=== PATIENT | female | born 1995 | race Hispanic/Latino ===

== ENCOUNTER 2019-12-26 20:19 | Observation (INO) | payer OTHER, SELFPAY ==
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
[2019-12-26 19:14] VITALS: BP 122/75; PULSE 76; RESP 19; TEMP 36.9; O2SAT 98
[2019-12-26 20:26] VITALS: BP 112/65; PULSE 74
[2019-12-26 20:31] VITALS: BP 106/54; PULSE 67
[2019-12-26 20:46] VITALS: BP 106/51; PULSE 71
[2019-12-26 21:01] VITALS: BP 107/48; PULSE 70
[2019-12-26 21:16] VITALS: BP 94/51; PULSE 83
[2019-12-26 21:42] VITALS: BMI 26.4
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
== END 2019-12-26 22:04 | disposition home or self-care (01) ==
PROVIDERS: Admitting Provider Obstetrics & Gynecology; PCP Family Medicine; Visit Provider Obstetrics & Gynecology
DX: Z04.1 Encounter for examination and observation following transport accident (principal); O26.891 Other specified pregnancy related conditions, first trimester; Z3A.11 11 weeks gestation of pregnancy
CPT/HCPCS: 76801; G0378; G0379

== ENCOUNTER 2020-01-26 08:54 | Outpatient (NON) | payer OTHER, SELFPAY ==
[2020-01-26 21:43] LABS: SARS-CoV-2 RNA PCR Negative
== END 2020-01-26 08:55 ==
LOC: ANHCOVIDDT 08:55
PROVIDERS: PCP Family Medicine; Visit Provider Obstetrics & Gynecology
DX: O99.891 Other specified diseases and conditions complicating pregnancy (principal); R53.83 Other fatigue; Z20.828 Contact with and (suspected) exposure to other viral communicable diseases; Z3A.16 16 weeks gestation of pregnancy
CPT/HCPCS: 87635; C9803; U0003

== ENCOUNTER 2020-04-13 19:04 | Observation (INO) | payer OTHER, SELFPAY ==
--- NOTE | ~2020-04-13 | US_ITS ---
EXAMINATION: US OB limited DATE: 04/14/2020 07:30 INDICATION: Low-lying placenta. Patient having contractions at 28 weeks estimated gestational age. TECHNIQUE: Real-time ultrasound of the pelvis was performed. The interpreting radiologist was not pre sent for the study. COMPARISON: None. FINDINGS: There is a single living fetus in transverse lie with head to maternal right in vertex slightly more cephalad than the feet. The placenta is posterior and low-lying with caudal margin 1.4 cm from the internal cervical os. There is a small hypoechoic placental monk. heart rate is 133 beats per minute (bpm). IMPRESSION: 1. Single living fetus in transverse lie with heart rate of 133 bpm. Reviewed, dictated and finalized at location A. RY DRUM DYER
[2020-04-13 19:59] VITALS: BP 117/59; PULSE 90
[2020-04-13 20:16] LABS: Add Urine Microscopic? YES; Appearance Urine Cloudy (Clear); Bacteria Urine Trace /hpf; Bilirubin Urine Negative (Negative); Blood Urine 1+ (Negative); Color Urine Yellow (Yellow); Glucose Urine UA Negative (Negative); Ketones Urine 1+ mg/dL (Negative); Leukocyte Esterase Ur Trace LEU/UL (NEGATIVE); Mucus Urine Rare /lpf; Nitrate Urine Negative (Negative); Protein Urine Negative (Negative); RBC Urine 0-2 /hpf (0-2); Specific Grav Ur 1.023 (1.001-1.035); Squamous Epithelial Cell Urine Many /hpf (Few); Urobilinogen Urine Negative mg/dL (<2.0)
--- NOTE | 2020-04-13 20:38 | PC.NURSE ---
Notified Antony Dillon of pt admission lab work and assessment. Orders received.
[2020-04-13] MEDS: TERBUTALINE SULFATE 1 MG/ML VIAL 0.25 MG SUB-Q ×2 (21:01→22:35)
[2020-04-13] MEDS: ACETAMINOPHEN 500 MG TABLET 1000 MG PO (21:01)
[2020-04-13] MEDS: NITROFURANTOIN MONOHYD MACROCR 100 MG CAP PO (21:01)
[2020-04-13] MEDS: LACTATED RINGERS 1,000 ML 999 ML IV CONT (22:35)
--- NOTE | 2020-04-13 23:24 | OBADM ---
This patient, Marianna Armstrong, admitted to the OB room OB Post 117 for observation. Patient/family oriented to hospital policies and general routines including ID bracelet, bed and alarms, visiting hours, pain management, procedures, bathroom and other care routines, personal items, smoking policy, room service/diet, and visiting hours. Patient/Family are encouraged to report perceived risks to care and to ask questions if they do not understand what they are told or what they should do.
[2020-04-14 00:03] VITALS: TEMP 36.8
--- NOTE | 2020-04-14 00:15 | PC.NURSE ---
Addendum entered by Ryan Tello RN 04/14/20 02:17: Notified Antony Dillon of pt continued complaint of intermittent pain. No contractions. Will observe overnight and do ultrasound in morning. Original Note: NOTIFIED
[2020-04-14 03:54] VITALS: BP 94/58; PULSE 89
[2020-04-14 07:07] VITALS: BP 95/41; PULSE 88
[2020-04-14] MEDS: ACETAMINOPHEN 500 MG TABLET 1000 MG PO (08:04)
[2020-04-14] MEDS: CYCLOBENZAPRINE HCL 5 MG TABLET PO (09:03)
[2020-04-14] MEDS: NITROFURANTOIN MONOHYD MACROCR 100 MG CAP PO (09:03)
--- NOTE | 2020-05-07 07:57 | PM.OBTRLD ---
OB - Triage/Final Diagnosis Visit Information Comments/Additional reasons for admission: I have assessed the risk for this patient, Marianna Armstrong, and determined that she would benefit from observation care. Evaluation Laboratory results: Laboratory Tests 04/13/20 19:59 Urine Color Yellow Urine Appearance Cloudy H Urine pH 6.0 Ur Specific [place] 1.023 Urine Protein Negative Urine Glucose (UA) Negative Urine Ketones 1+ H Ur Blood (Man) 1+ H Urine Nitrate Negative Urine Bilirubin Negative Urine Urobilinogen Negative Ur Leukocyte Esterase Trace H Urine RBC 0-2 Urine WBC 4-6 H Ur Squamous Epith Cells Many H Urine Bacteria Trace Hyaline Casts 1-2 Urine Mucus Rare Final Diagnosis (1) False labor: Code(s): O47.9 - False labor, unspecified Status: Acute
== END 2020-04-14 11:37 | disposition home or self-care (01) ==
PROVIDERS: Advanced Practice Midwife; Admitting Provider Obstetrics & Gynecology; PCP Family Medicine; Visit Provider Obstetrics & Gynecology
DX: O47.9 False labor, unspecified (principal); Z3A.00 Weeks of gestation of pregnancy not specified
CPT/HCPCS: 76815; 81001; 87086; 96372; A9270; G0378; G0379; J3105; J7120

== ENCOUNTER 2020-04-21 10:31 | Observation (INO) | payer OTHER, SELFPAY ==
[2020-04-21] VITALS (7 sets, daily range): BP systolic 80–106; BP diastolic 33–53; PULSE 81–92; TEMP 36.8; BMI 30.8
--- NOTE | 2020-04-21 11:21 | OBADM ---
This patient, Marianna Armstrong, admitted to the OB room OB Post 113 for observation. Patient/family oriented to hospital policies and general routines including ID bracelet, bed and alarms, visiting hours, pain management, procedures, bathroom and other care routines, personal items, smoking policy, room service/diet, and visiting hours. Patient/Family are encouraged to report perceived risks to care and to ask questions if they do not understand what they are told or what they should do.
--- NOTE | 2020-04-21 12:29 | PC.NURSE ---
1130--Pt continues to c/o back pain that comes and goes. Monitor adjusted several times with no contractions noted per toco or palpation.
--- NOTE | 2020-04-21 12:34 | PC.NURSE ---
1156--Instructed pt on marking contractions that she feels in her back.
--- NOTE | 2020-04-21 12:35 | PC.NURSE ---
1230--No contractions noted with pt marking what she feels. Describes back pain as very low aching.
--- NOTE | 2020-05-13 09:33 | PM.OBTRLD ---
OB - Triage/Final Diagnosis Visit Information Comments/Additional reasons for admission: I have assessed the risk for this patient, Marianna Armstrong, and determined that she would benefit from observation care. Final Diagnosis (1) Nausea: Code(s): R11.0 - Nausea Status: Acute
== END 2020-04-21 12:50 | disposition home or self-care (01) ==
PROVIDERS: Admitting Provider Obstetrics & Gynecology; PCP Family Medicine; Visit Provider Obstetrics & Gynecology
DX: O26.899 Other specified pregnancy related conditions, unspecified trimester (principal); R11.0 Nausea; Z3A.00 Weeks of gestation of pregnancy not specified
CPT/HCPCS: G0378; G0379

== ENCOUNTER 2020-05-02 12:07 | Observation (INO) | payer OTHER, SELFPAY ==
[2020-05-02] VITALS (7 sets, daily range): BP systolic 105–119; BP diastolic 45–59; PULSE 67–81
[2020-05-02 13:53] LABS: Fetal Fibronectin Negative
--- NOTE | 2020-05-04 07:36 | P.PNOB_ITS ---
OB - Triage/Final Diagnosis Visit Information Date of evaluation: 05/02/20 Reason for evaluation: threatened labor Comments/Additional reasons for admission: I have assessed the risk for this patient, Marianna Talavera Armstrong, and determined that she would benefit from obse rvation care. Evaluation Laboratory results: Laboratory Tests 05/02/20 12:47 Fibronectin Negative
--- NOTE | 2020-05-04 07:36 | PM.OBTRLD ---
OB - Triage/Final Diagnosis Visit Information Date of evaluation: 05/02/20 Reason for evaluation: threatened labor Comments/Additional reasons for admission: I have assessed the risk for this patient, Marianna Armstrong, and determined that she would benefit from observation care. Evaluation Laboratory results: Laboratory Tests 05/02/20 12:47 Fibronectin Negative
== END 2020-05-02 15:05 | disposition home or self-care (01) ==
PROVIDERS: Admitting Provider Obstetrics & Gynecology; PCP Advanced Practice Midwife; Visit Provider Obstetrics & Gynecology
DX: O47.00 False labor before 37 completed weeks of gestation, unspecified trimester (principal); Z3A.00 Weeks of gestation of pregnancy not specified
CPT/HCPCS: 82731; G0378; G0379

== ENCOUNTER 2020-05-10 14:41 | Observation (INO) | payer OTHER, SELFPAY ==
[2020-05-10] VITALS (8 sets, daily range): BP systolic 96–116; BP diastolic 49–59; PULSE 73–86; BMI 29.3
--- NOTE | 2020-06-02 09:34 | PM.OBTRLD ---
OB - Triage/Final Diagnosis Visit Information Comments/Additional reasons for admission: I have assessed the risk for this patient, Marianna Armstrong, and determined that she would benefit from observation care. Final Diagnosis (1) False labor: Code(s): O47.9 - False labor, unspecified Status: Acute
== END 2020-05-10 17:17 | disposition home or self-care (01) ==
PROVIDERS: Admitting Provider Obstetrics & Gynecology; PCP Advanced Practice Midwife; Visit Provider Obstetrics & Gynecology
DX: O47.03 False labor before 37 completed weeks of gestation, third trimester (principal); Z3A.31 31 weeks gestation of pregnancy
CPT/HCPCS: 73620; 84112; G0378; G0379

== ENCOUNTER 2020-05-15 09:16 | Observation (INO) | payer OTHER, SELFPAY ==
[2020-05-15 09:28] VITALS: BP 112/58; PULSE 85
--- NOTE | 2020-05-15 09:30 | LDADM ---
This patient, Marianna Armstrong, was admitted to OB Post 116 on 05/15/20 at 09:16. Plans for labor, pain management and were discussed with patient. Patient/family oriented to hospital policies and general routines including ID bracelet, bed and alarms, visiting hours, pain management, procedures, bathroom and other care routines, personal items, smoking policy, room service/diet and guest tray routines, infant security routines, and visiting hours. Patient/Family are encouraged to report perceived risks to care and to ask questions if they do not understand what they are told or what they should do. See OBIX for further documentation.
[2020-05-15 09:31] VITALS: BP 106/50; PULSE 79
[2020-05-15 09:46] VITALS: BP 104/46; PULSE 78
[2020-05-15 10:01] VITALS: BP 95/48; PULSE 83
[2020-05-15 10:04] LABS: Basophils Percent Auto 0.3 % (0.2-1.2); Eosinophils Absolute Auto 0.1 K/mm3 (0-0.3); Eosinophils Percent Auto 0.5 % (0-4.4); Hematocrit 29.3 % (37.0-47.0); Hemoglobin 10.1 g/dL (12.0-15.0); Immature Granulocyte Absolute 0.18 K/mm3 (0.00-0.031); Immature Granulocyte Percent A 1.5 % (0-0.5); Lymphocytes Absolute Auto 1.05 K/mm3 (0.9-3.2); Mean Corpuscular HGB Conc 34.5 g/dl (32-36); Mean Corpuscular Hemoglobin 29.2 pg (26-34); Mean Corpuscular Volume 84.7 fl (80-100); Mean Platelet Volume 11.9 fl (7.4-10.4); Monocytes Absolute Auto 0.7 K/mm3 (0.1-0.6); Monocytes Percent Auto 6.3 % (2.6-8.5); Neutrophils Absolute Auto 9.6 K/mm3 (1.3-6.7); Neutrophils Percent Auto 82.4 % (45.5-73.1); Platelet Count Result 193 k/mm3 (150-375); Red Blood Count 3.46 M/mm3 (4.2-5.4); Red Cell Distribution Width 13.8 % (11.5-14.5); White Blood Count 11.6 K/mm3 (4.5-10.0)
[2020-05-15 10:18] LABS: Alanine Aminotransferase 9 U/L (4-35); Albumin Level 3.3 g/dL (3.5-5.1); Alkaline Phosphatase 91 U/L (38-126); Anion Gap 4 mmol/L (8-16); Aspartate Amino Transferase 18 U/L (14-36); Bilirubin,Total 0.2 mg/dL (0.2-1.3); Blood Urea Nitrogen 9 mg/dL (7-17); Calcium 8.3 mg/dL (8.4-10.2); Carbon Dioxide 23 mmol/L (22-30); Chloride 109 mmol/L (98-107); Estimated Glomerular Filt Rate > 60; Glucose 85 mg/dL (65-105); Potassium 3.5 mmol/L (3.4-5.0); Sodium 136 mmol/L (137-145)
[2020-05-15] MEDS: DEXTROSE 5%/LACTATED RINGERS 1,000 ML 999 ML IV CONT (10:57)
[2020-05-15 11:15] LABS: Add Urine Microscopic? YES; Appearance Urine Clear (Clear); Bacteria Urine Trace /hpf; Bilirubin Urine Negative (Negative); Blood Urine Negative (Negative); Color Urine Yellow (Yellow); Glucose Urine UA Negative (Negative); Ketones Urine Negative (Negative); Leukocyte Esterase Ur Negative LEU/UL (Negative); Mucus Urine Heavy /lpf; Nitrate Urine Negative (Negative); Protein Urine 1+ mg/dL (Negative); Specific Grav Ur 1.018 (1.001-1.035); Squamous Epithelial Cell Urine Many /hpf (Few); Urobilinogen Urine Negative mg/dL (<2.0); WBC Urine 0-3 /hpf
[2020-05-15 13:31] VITALS: BP 122/52; PULSE 78
--- NOTE | 2020-05-17 21:26 | P.PNOB_ITS ---
OB - Triage/Final Diagnosis Visit Information Date of evaluation: 05/15/20 Reason for evaluation: threatened labor Comments/Additional reasons for admission: I have assessed the risk for this patient, Marianna Armstrong, and determined that she would benefit from obse rvation care. Evaluation Laboratory results: Laboratory Tests 05/15/20 05/15/20 05/15/20 09:52 09:52 10:58 WBC 11.6 H RBC 3.46 L Hgb 10.1 L Hct 29.3 L MCV 84.7 MCH 29.2 MCHC 34.5 RDW 13.8 Plt Count 193 MPV 11.9 H Immature Gran % (Auto) 1.5 H Neut % (Auto) 82.4 H Lymph % (Auto) 9.0 L [place] % (Auto) 6.3 Eos % (Auto) 0.5 Baso % (Auto) 0.3 Lymph # (Auto) 1.05 [place] # (Auto) 0.7 H Eos # (Auto) 0.1 Baso # (Auto) 0.0 Abs Immat Gran (auto) 0.18 H Absolute Neuts (auto) 9.6 H Absolute Nucleated RBC 0.0 Nucleated RBC % 0.0 Sodium 136 L Potassium 3.5 Chloride 109 H Carbon Dioxide 23 Anion Gap 4 L BUN 9 Creatinine 0.30 L Estim Creat Clear Calc Not Reportable Estimated GFR > 60 Glucose 85 Calcium 8.3 L Total Bilirubin 0.2 AST 18 ALT 9 Alkaline Phosphatase 91 Total Protein 6.0 L Albumin 3.3 L Urine Color Yellow Urine Appearance Clear Urine pH 6.0 Ur Specific [place] 1.018 Urine Protein 1+ H Urine Glucose (UA) Negative Urine Ketones Negative Ur Blood (Man) Negative Urine Nitrate Negative Urine Bilirubin Negative Urine Urobilinogen Negative Leukocyte Esterase Rfl Negative Urine RBC 3-5 H Urine WBC 0-3 Ur Squamous Epith Cells Many H Urine Bacteria Trace Urine Mucus Heavy H
== END 2020-05-15 13:59 | disposition home or self-care (01) ==
PROVIDERS: Admitting Provider Obstetrics & Gynecology; PCP Advanced Practice Midwife; Visit Provider Obstetrics & Gynecology
DX: O47.03 False labor before 37 completed weeks of gestation, third trimester (principal); Z3A.32 32 weeks gestation of pregnancy
CPT/HCPCS: 36415; 80053; 81001; 85025; 96361; 96374; G0378; G0379; J0131; J7121

== ENCOUNTER 2020-06-04 19:53 | Observation (INO) | payer OTHER, SELFPAY ==
[2020-06-04 20:14] VITALS: BP 115/67; PULSE 95
[2020-06-04 20:15] VITALS: BP 132/78; PULSE 101
[2020-06-04 20:31] VITALS: BP 128/71; PULSE 88
[2020-06-04 20:40] LABS: Add Urine Microscopic? YES; Appearance Urine Clear (Clear); Bacteria Urine Trace /hpf; Bilirubin Urine Negative (Negative); Blood Urine Negative (Negative); Color Urine Yellow (Yellow); Glucose Urine UA Negative (Negative); Ketones Urine Negative (Negative); Leukocyte Esterase Ur Negative LEU/UL (Negative); Mucus Urine Rare /lpf; Nitrate Urine Negative (Negative); Protein Urine 1+ mg/dL (Negative); RBC Urine 0-2 /hpf (0-2); Renal Epithelial Cells Urine Rare /hpf (None Seen); Specific Grav Ur 1.019 (1.001-1.035); Squamous Epithelial Cell Urine Moderate /hpf (Few); Urobilinogen Urine Negative mg/dL (<2.0); WBC Urine 0-3 /hpf
[2020-06-04 20:46] VITALS: BP 118/67; PULSE 88
[2020-06-04 21:00] VITALS: BMI 32.6
[2020-06-04 21:55] VITALS: TEMP 36.4
--- NOTE | 2020-06-25 11:26 | PM.OBTRLD ---
OB - Triage/Final Diagnosis Visit Information Comments/Additional reasons for admission: I have assessed the risk for this patient, Marianna Armstrong, and determined that she would benefit from observation care. Evaluation Laboratory results: Laboratory Tests 06/04/20 20:22 Urine Color Yellow Urine Appearance Clear Urine pH 6.0 Ur Specific [place] 1.019 Urine Protein 1+ H Urine Glucose (UA) Negative Urine Ketones Negative Ur Blood (Man) Negative Urine Nitrate Negative Urine Bilirubin Negative Urine Urobilinogen Negative Leukocyte Esterase Rfl Negative Urine RBC 0-2 Urine WBC 0-3 Ur Squamous Epith Cells Moderate H Ur Renal Epithelial Cell Rare H Urine Bacteria Trace Urine Mucus Rare Final Diagnosis (1) False labor: Code(s): O47.9 - False labor, unspecified Status: Acute
== END 2020-06-04 22:15 | disposition home or self-care (01) ==
PROVIDERS: Advanced Practice Midwife; Admitting Provider Obstetrics & Gynecology; Visit Provider Obstetrics & Gynecology
DX: O47.03 False labor before 37 completed weeks of gestation, third trimester (principal); Z3A.35 35 weeks gestation of pregnancy
CPT/HCPCS: 81001; G0378; G0379

== ENCOUNTER 2020-06-08 23:01 | Observation (INO) | payer OTHER, SELFPAY ==
[2020-06-08 23:16] VITALS: BP 126/68; PULSE 73; TEMP 36.8
[2020-06-08 23:17] VITALS: BP 121/67; PULSE 77; BMI 32.6
--- NOTE | 2020-06-08 23:19 | OBADM ---
This patient, Marianna Armstrong, admitted to the OB room Labor/Delivery/Recovery 120 for observation. Patient/family oriented to hospital policies and general routines including ID bracelet, bed and alarms, visiting hours, pain management, procedures, bathroom and other care routines, personal items, smoking policy, room service/diet, and visiting hours. Patient/Family are encouraged to report perceived risks to care and to ask questions if they do not understand what they are told or what they should do.
--- NOTE | 2020-06-13 07:34 | P.PNOB_ITS ---
OB - Triage/Final Diagnosis Visit Information Date of evaluation: 06/09/20 Reason for evaluation: threatened labor Comments/Additional reasons for admission: I have assessed the risk for this patient, Marianna Armstrong, and determined that she would benefit from obse rvation care.
== END 2020-06-09 00:44 | disposition home or self-care (01) ==
PROVIDERS: Admitting Provider Obstetrics & Gynecology; Visit Provider Obstetrics & Gynecology
DX: O47.03 False labor before 37 completed weeks of gestation, third trimester (principal); Z3A.36 36 weeks gestation of pregnancy
CPT/HCPCS: G0378; G0379

== ENCOUNTER 2020-06-20 14:41 | Observation (INO) | payer OTHER, SELFPAY ==
[2020-06-20] VITALS (7 sets, daily range): BP systolic 102–119; BP diastolic 55–71; PULSE 71–88; TEMP 36.8–37.4; BMI 35.1
[2020-06-20] MEDS: LACTATED RINGERS 1,000 ML 999 ML IV CONT (15:25)
[2020-06-20 15:40] LABS: Basophils Percent Auto 0.3 % (0.2-1.2); Eosinophils Percent Auto 0.3 % (0-4.4); Hematocrit 27.9 % (37.0-47.0); Hemoglobin 8.8 g/dL (12.0-15.0); Immature Granulocyte Percent A 0.9 % (0-0.5); Lymphocytes Absolute Auto 0.84 K/mm3 (0.9-3.2); Mean Corpuscular HGB Conc 31.5 g/dl (32-36); Mean Corpuscular Hemoglobin 25.2 pg (26-34); Mean Corpuscular Volume 79.9 fl (80-100); Mean Platelet Volume 11.3 fl (7.4-10.4); Monocytes Absolute Auto 0.7 K/mm3 (0.1-0.6); Monocytes Percent Auto 6.6 % (2.6-8.5); Neutrophils Absolute Auto 8.8 K/mm3 (1.3-6.7); Neutrophils Percent Auto 83.9 % (45.5-73.1); Platelet Count Result 177 k/mm3 (150-375); Red Blood Count 3.49 M/mm3 (4.2-5.4); Red Cell Distribution Width 15.4 % (11.5-14.5); White Blood Count 10.5 K/mm3 (4.5-10.0)
[2020-06-20 15:45] LABS: Add Urine Microscopic? YES; Amorphous Sediment Urine Few; Appearance Urine Cloudy (Clear); Bacteria Urine 2+ /hpf; Bilirubin Urine Negative (Negative); Blood Urine Negative (Negative); Color Urine Yellow (Yellow); Glucose Urine UA Negative (Negative); Ketones Urine Negative (Negative); Leukocyte Esterase Ur Trace LEU/UL (Negative); Mucus Urine Few /lpf; Nitrate Urine Negative (Negative); Protein Urine 1+ mg/dL (Negative); RBC Urine 0-2 /hpf (0-2); Specific Grav Ur 1.017 (1.001-1.035); Squamous Epithelial Cell Urine Moderate /hpf (Few); Urobilinogen Urine Negative mg/dL (<2.0); WBC Urine 0-3 /hpf
--- NOTE | 2020-06-20 15:45 | OBADM ---
This patient, Marianna Armstrong, admitted to the OB room 120 at 1441 for observation for fever in office. Patient/family oriented to hospital policies and general routines including ID bracelet, bed and alarms, visiting hours, pain management, procedures, bathroom and other care routines, personal items, smoking policy, room service/diet, and visiting hours. Patient/Family are encouraged to report perceived risks to care and to ask questions if they do not understand what they are told or what they should do.
[2020-06-20] MEDS: LACTATED RINGERS 1,000 ML 125 ML IV CONT (16:21)
--- NOTE | 2020-06-20 18:40 | PC.NURSE ---
To room to give Terbutaline. Pt is tearful. Pt questions why she is getting shot to stop her labor. Advised pt we are attempting to stop contractions and make her more comfortable. Pt states she has been having contractions for weeks and questions why we do not just do a . Advised pt cervix is closed and we do not do before 39 weeks unless there is a medical reason. Called Cheryl Salmon to discuss same with pt and new orders received for Procardia XL. Pt also states she is hungry. Snack box given.
[2020-06-20] MEDS: NIFEdipine 30 MG TAB.ER.24 PO (18:41)
--- NOTE | 2020-06-22 07:35 | P.PNOB_ITS ---
OB - Triage/Final Diagnosis Visit Information Date of evaluation: 06/20/20 Reason for evaluation: threatened labor Comments/Additional reasons for admission: I have assessed the risk for this patient, Marianna Armstrong, and determined that she would benefit from obse rvation care. Evaluation Laboratory results: Laboratory Tests 06/20/20 06/20/20 15:31 15:31 WBC 10.5 H RBC 3.49 L Hgb 8.8 L Hct 27.9 L MCV 79.9 L MCH 25.2 L MCHC 31.5 L RDW 15.4 H Plt Count 177 MPV 11.3 H Immature Gran % (Auto) 0.9 H Neut % (Auto) 83.9 H Lymph % (Auto) 8.0 L [place] % (Auto) 6.6 Eos % (Auto) 0.3 Baso % (Auto) 0.3 Lymph # (Auto) 0.84 L [place] # (Auto) 0.7 H Eos # (Auto) 0.0 Baso # (Auto) 0.0 Abs Immat Gran (auto) 0.10 H Absolute Neuts (auto) 8.8 H Absolute Nucleated RBC 0.0 Nucleated RBC % 0.0 Urine Color Yellow Urine Appearance Cloudy H Urine pH 8.0 Ur Specific [place] 1.017 Urine Protein 1+ H Urine Glucose (UA) Negative Urine Ketones Negative Ur Blood (Man) Negative Urine Nitrate Negative Urine Bilirubin Negative Urine Urobilinogen Negative Leukocyte Esterase Rfl Trace H Urine RBC 0-2 Urine WBC 0-3 Ur Squamous Epith Cells Moderate H Amorphous Sediment Few H Urine Bacteria 2+ H Urine Mucus Few H
== END 2020-06-20 20:15 | disposition home or self-care (01) ==
PROVIDERS: Admitting Provider Obstetrics & Gynecology; PCP Advanced Practice Midwife; Visit Provider Obstetrics & Gynecology
DX: O47.1 False labor at or after 37 completed weeks of gestation (principal); Z3A.37 37 weeks gestation of pregnancy
CPT/HCPCS: 36415; 81001; 85025; 96360; A9270; G0378; G0379; J7120

== ENCOUNTER 2020-06-27 14:25 | Outpatient (CLI) | payer OTHER, SELFPAY ==
[2020-06-27 14:58] LABS: Basophils Percent Auto 0.3 % (0.2-1.2); Eosinophils Absolute Auto 0.1 K/mm3 (0-0.3); Eosinophils Percent Auto 0.7 % (0-4.4); Hematocrit 28.2 % (37.0-47.0); Hemoglobin 8.8 g/dL (12.0-15.0); Immature Granulocyte Absolute 0.09 K/mm3 (0.00-0.031); Immature Granulocyte Percent A 0.8 % (0-0.5); Lymphocytes Absolute Auto 0.84 K/mm3 (0.9-3.2); Lymphocytes Percent Auto 7.3 % (18.3-44.2); Mean Corpuscular HGB Conc 31.2 g/dl (32-36); Mean Corpuscular Volume 80.1 fl (80-100); Monocytes Absolute Auto 0.8 K/mm3 (0.1-0.6); Monocytes Percent Auto 6.7 % (2.6-8.5); Neutrophils Absolute Auto 9.8 K/mm3 (1.3-6.7); Neutrophils Percent Auto 84.2 % (45.5-73.1); Platelet Count Result 182 k/mm3 (150-375); Red Blood Count 3.52 M/mm3 (4.2-5.4); Red Cell Distribution Width 15.7 % (11.5-14.5); White Blood Count 11.6 K/mm3 (4.5-10.0)
[2020-06-28 07:09] LABS: Rapid Plasma Reagin Non-Reactive (NonReactive)
== END 2020-06-27 14:26 | disposition home or self-care (01) ==
PROVIDERS: PCP Advanced Practice Midwife; Visit Provider Obstetrics & Gynecology
DX: Z01.812 Encounter for preprocedural laboratory examination (principal); O34.219 Maternal care for unspecified type scar from previous cesarean delivery; Z3A.39 39 weeks gestation of pregnancy
CPT/HCPCS: 36415; 85025; 86592; 86850; 86900; 86901

== ENCOUNTER 2020-06-28 05:10 | Inpatient (IN) | payer OTHER, SELFPAY ==
[2020-06-28] VITALS (46 sets, daily range): BP systolic 100–138; BP diastolic 54–108; PULSE 57–102; RESP 14–18; TEMP 36.1–36.9; O2SAT 98–100; BMI 34.8
[2020-06-28 06:30] LABS: Hemoglobin 8.6 g/dL (12.0-15.0); Platelet Count Result 179 k/mm3 (150-375)
[2020-06-28] MEDS: LACTATED RINGERS 1,000 ML 125 ML IV CONT ×2 (06:33→07:23)
--- NOTE | 2020-06-28 07:00 | WPDANESEPPF ---
Anes - Initial Pre Proc Eval Procedure: Operation Date: 06/28/20 07:30 Proposed Procedures p Repeat Section With Bilateral Tubal Ligation With Fulguration - Severiano Ashton MD Date/Time: 06/28/20 07:00 Surgeon: Severiano Ashton MD Pre Op Diagnosis: Previous c section, desired sterility Pre Op Diagnosis: section Patient Data Age: 24 Gender: F Height: 5 ft 4 in Weight: 92 kg Last Vital Signs Pulse 88 06/28/20 05:48 BP 100/64 06/28/20 05:48 Allergies Allergy/AdvReac Type Severity Reaction Status Date / Time No Known Drug Allergies Allergy Unknown Other Verified 06/28/20 06:47 Home Medications Medication Instructions Recorded Confirmed Type Vitamin 1 tablet PO DAILY 04/14/20 06/28/20 History Slow Fe 142 mg PO DAILY 06/20/20 06/28/20 History nifedipine [Procardia XL] 30 mg PO QAM 6 Days #6 tablet 06/20/20 06/28/20 Rx Laboratory Tests 06/28/20 06:00 Hgb 8.6 g/dL L g/dL (12.0-15.0) Hct 28.0 % L % (37.0-47.0) Plt Count 179 k/mm3 k/mm3 (150-375) MPV 11.0 fl H fl (7.4-10.4) : gestational age (, FRANCI 07/05/20) Patient hx anesthesia problems: none Family hx anesthesia problems: none PMFSH Family History Family History Other No pertinent family history Social History Social History Smoking status: Never smoker Substance use: never Gender identity (if verbalized by the patient): Female Spiritual care concerns: No Anes - Eval Final PreProcedure Day of Procedure 06/28/20 07:00 Patient weight: obese Heart: regular rate and rhythm Lungs: normal air movement Airway: Mallampati scale class II Neurological: alert and oriented Last oral intake: >/= 8 hours ASA classification: II Emergent: no Anesthetic plan: proceed Anesthesia type and monitoring: regional spinal (with Duramorph) Informed Consent: The patient's anesthetic plan and its attendant risks and benefits were discussed with the patient/family/POA. Questions were solicited and answers provided to the satisfaction of the patient/family/POA.
--- NOTE | 2020-06-28 07:23 | PM.IMHP ---
H&P: HPI History of Present Illness Date/Time: 06/28/20 07:23 this patient is a multiparous female at 39 weeks gestation on who has a previous delivery and unwanted fertility. We have agreed to perform repeat delivery and bilateral tubal ligation. She understands that surgery has risks. She understands that injuries may occur that result in more surgery, hospitalization, severe illness. She understands there is risk of infection and hemorrhage. She denies any loss of fluid, vaginal bleeding, contractions. She denies any blurry vision, epigastric pain, headache. She denies any chest pain or shortness of breath. She denies any nausea, vomiting, fever, chills. Chief Complaint: Term Review of Systems Constitutional: Constitutional: Reports no additional constitutional complaints, Denies fatigue, Denies headache(s), Denies lethargy and Denies weakness Eyes: Eyes: Reports no additional eye complaints, Denies blurry vision and Denies photophobia ENT: Reports as per HPI, Denies headache(s) and Denies neck pain Cardiovascular: Cardiovascular: Denies chest pain, Denies diaphoresis, Denies leg edema, Denies palpitations and Denies dyspnea Respiratory: Respiratory: Denies hemoptysis, Denies dyspnea and Denies wheezing Gastrointestinal: Gastrointestinal: Denies abdominal pain, Denies melena, Denies bloating, Denies hematochezia, Denies nausea and Denies vomiting Genitourinary: Genitourinary: Reports no additional female genitourinary complaints Musculoskeletal: Musculoskeletal: Denies joint swelling, Denies neck pain, Denies numbness and Denies stiffness Neurologic: Denies Abnormal speech present, Denies confusion, Denies headache(s), Denies numbness and Denies weakness Psychiatric: Psychiatric: Denies anxiety, Denies confusion, Denies depression, Denies homicidal ideation and Denies suicidal ideation Endocrine: Endocrine: Denies fatigue and Denies palpitations Allergic/Immunologic: Allergic/Immunologic: Denies wheezing PMF Family History Family History Other No pertinent family history Social History Social History Smoking status: Never smoker Substance use: never Gender identity (if verbalized by the patient): Female Spiritual care concerns: No Meds Home Medications and Allergies Home Medications Medication Instructions Recorded Confirmed Type Vitamin 1 tablet PO DAILY 04/14/20 06/28/20 History Slow Fe 142 mg PO DAILY 06/20/20 06/28/20 History nifedipine [Procardia XL] 30 mg PO QAM 6 Days #6 tablet 06/20/20 06/28/20 Rx Allergies Allergy/AdvReac Type Severity Reaction Status Date / Time No Known Drug Allergies Allergy Unknown Other Verified 06/28/20 06:47 Vital Signs Vital Signs - 24 hr 06/28/20 05:48 Pulse Rate 88 Blood Pressure 100/64 Exam Const: General: healthy appearing, comfortable and no acute distress; No confusion Orientation/consciousness: No confusion Eyes: Direct Ophthalmoscopy: No photophobia Resp: Auscultation: clear to auscultation bilaterally, no rales, no rhonchi and no wheezes Cardio: Rate: regular rate Heart sounds: no click, no murmurs and no rubs GI: Inspection: non-distended GI Palp: No abdominal tenderness Auscultation: normal bowel sounds Neuro: General: No confusion Speech: No Abnormal speech present Extrem: General: normal to inspection, no pedal edema and no calf tenderness H&P: Results Labs Labs: Short CBC 06/28/20 Range/Units 06:00 Hgb 8.6 L (12.0-15.0) g/dL Hct 28.0 L (37.0-47.0) % Plt Count 179 (150-375) k/mm3 Assessment and Plan Assessment and plan (1) Term : Code(s): Z34.90 - Encounter for supervision of normal , unspecified, unspecified trimester Status: Acute (2) Previous delivery, delivered: Code(s): O34.219 - Mate
--- NOTE | 2020-06-28 07:29 | WPDHPUPDATE1 ---
History and Physical Update Update Date/Time: 06/28/20 07:29 History and Physical has been reviewed, including an updated exam of the patient. There are NO changes in the patient's condition. Risks, benefits, and alternatives have been discussed and questions answered. Patient agrees to proceed with procedure.
[2020-06-28] MEDS: ceFAZolin 2 GM/D5W 50 ML 2 GM/50 ML BAG IVPB (07:32)
--- NOTE | 2020-06-28 07:37 | WPDHPUPDATE1 ---
History and Physical Update Update Date/Time: 06/28/20 07:37 History and Physical has been reviewed, including an updated exam of the patient. There are NO changes in the patient's condition. Risks, benefits, and alternatives have been discussed and questions answered. Patient agrees to proceed with procedure.
--- NOTE | 2020-06-28 08:31 | P.OP_ITS ---
Procedure Note - Detailed Date of procedure: 06/28/20 Pre-op diagnosis: section Unwanted fertility, previous Post-op diagnosis: same Procedure performed: Repeat low-transverse delivery, tubal ligation Description of procedure: The patient was taken the operating room. She was prepped and draped in the dorsal supine position with leftward tilt after induction of spinal anesthetic. When anesthesia was found to be adequate a low- transverse skin incision was made and carried down to the level the fascia with the knife. The fascial incision was made at the midline with a scalpel. The fascial incision was extended laterally with Lugo scissors. The fascia was tented upward superior and inferior with Romulo clamps. The rectus muscles were dissected off bluntly. The rectus muscles at the midline. The preperitoneal fat was dissected bluntly at the superior aspect of the separate the rectus muscles. The peritoneal cavity was entered bluntly in the same area. The peritoneal incision was extended superior and inferior with good position of bladder. Bladder blade was inserted. A low-transverse incision was made on the uterus with the scalpel. It was carried down the level of the amniotic cavity with a knife. The amniotic cavity bluntly. The uterine incision was made laterally with blunt traction. The was delivered. The cord was clamped and cut. The infant was handed off to waiting pediatric staff. Cord bloods were obtained. The placenta was removed manually. The uterus was exteriorized. Uterus cleared of all clots and debris. Uterus closed in 0 Vicryl in a running locked fashion. An imbricating layer of 0 Vicryl was also placed on the to bolster the closure. Fallopian tube was grasped in the ampullary region with a [place]. It was raised away from the accompanying vein. A window was created in the broad ligament in this area of the tube. 0 Vicryl was used to ligate the proximal distal ends of the skeletonize region of the tube. The segment of the tube was resected with scissors. The cut surfaces were cauterized. On the contralateral side the procedure was performed identically. The uterus was returned to the abdomen. The gutters were cleared of all clots and debris. The fascia was closed 0 Vicryl in a running fashion. Subcutaneous tissue was irrigated and bleeding areas were cauterized. The skin was closed with subcuticular absorbable shanae. The incision was covered with derma knapp. The patient tolerated the procedure well. She was taken recovery room stable condition. Sponge, lap, needle counts were correct x2. Anesthesia: spinal Surgeon: Severiano Ashton MD Estimated blood loss (mL): 210 Drains: No Packing: No Pathology: none sent Complications: No immediate complications Condition: stable Disposition: floor Findings: Normal maternal anatomy. Average size with normal Apgars.
[2020-06-28] MEDS: diphenhydrAMINE HCl INJ 50 MG/ML VIAL 25 MG IV PUSH (08:42)
[2020-06-28] MEDS: fentaNYL CITRATE INJ (*CRX) 100 MCG/2 ML VIAL 25 MCG IV PUSH ×2 (09:11→09:53)
[2020-06-28] MEDS: OXYTOCIN 30 UNITS/NS 500 ML 30 UNITS/500 ML BAG 125 UNITS IV CONT (09:52)
--- NOTE | 2020-06-28 12:52 | PC.NURSE ---
1035 Pt admitted to room 287 per stretcher from L&D after repeat CS today with Dr. Ashton. Mother is a and is choosing to bottle feed baby. Pt has a friend with her as her support person. Pt oriented to room, staffing and procedures; admission folder reviewed including Mother Baby Guide. Pt's VSS and assessment WNL.
[2020-06-28] MEDS: IBUPROFEN 600 MG TABLET PO ×2 (13:16→22:45)
[2020-06-28] MEDS: HYDROcodone/acetaminophen (*CRX) 5-325 MG TABLET 1 TAB PO ×2 (13:17→17:26)
[2020-06-28] MEDS: DEXTROSE 5%/0.45% SOD CHL 1,000 ML 125 ML IV CONT (14:19)
[2020-06-28] MEDS: POLYSACCHARIDE IRON COMPLEX 150 MG CAPSULE PO (17:25)
[2020-06-28] MEDS: DOCUSATE SODIUM 100 MG CAPSULE PO (17:26)
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
[2020-06-28] MEDS: HYDROcodone/acetaminophen (*CRX) 10-325 MG TABLET 1 TAB PO (22:45)
[2020-06-29] MEDS: HYDROcodone/acetaminophen (*CRX) 10-325 MG TABLET 1 TAB PO ×4 (05:10→17:50)
[2020-06-29] MEDS: IBUPROFEN 600 MG TABLET PO ×3 (05:10→17:50)
[2020-06-29 05:23] VITALS: BP 115/66; PULSE 76; PULSE 84; RESP 16; TEMP 36.2; O2SAT 100
[2020-06-29 05:24] LABS: Basophils Absolute Auto 0.1 K/mm3 (0.0-0.1); Basophils Percent Auto 0.5 % (0.2-1.2); Eosinophils Absolute Auto 0.1 K/mm3 (0-0.3); Hemoglobin 7.1 g/dL (12.0-15.0); Immature Granulocyte Absolute 0.08 K/mm3 (0.00-0.031); Immature Granulocyte Percent A 0.7 % (0-0.5); Lymphocytes Absolute Auto 1.03 K/mm3 (0.9-3.2); Lymphocytes Percent Auto 9.4 % (18.3-44.2); Mean Corpuscular HGB Conc 30.9 g/dl (32-36); Mean Platelet Volume 11.4 fl (7.4-10.4); Monocytes Absolute Auto 0.7 K/mm3 (0.1-0.6); Monocytes Percent Auto 6.4 % (2.6-8.5); Neutrophils Absolute Auto 8.9 K/mm3 (1.3-6.7); Platelet Count Result 135 k/mm3 (150-375); Red Blood Count 2.84 M/mm3 (4.2-5.4); Red Cell Distribution Width 15.8 % (11.5-14.5); White Blood Count 10.9 K/mm3 (4.5-10.0)
--- NOTE | 2020-06-29 07:41 | WPDANLDPN2 ---
Anes-Prog Note L&D Date/Time: 06/29/20 07:41 Comfortable throughout: section Neuraxial method: spinal Epidural/Spinal procedure site: clean & non-tender Neuro status: Neuro function grossly intact. Cardiovascular status: normal Respiratory status: normal Airway patency: baseline Mental status: baseline Post-Op hydration status: normal Vital Signs: Last Vital Signs Temp 36.2 C L 06/29/20 05:23 Pulse 84 06/29/20 05:23 Resp 16 06/29/20 05:23 BP 115/66 06/29/20 05:23 Pulse Ox 100 06/29/20 05:23 Pain score (VAS): 0 I/O: Intake & Output 06/28/20 06/28/20 06/29/20 15:59 23:59 07:59 Intake Total 1050 Output Total 1573 Balance -523 Post-procedural complaints: none Patient feedback: Patient satisfied with anesthetic care.
--- NOTE | 2020-06-29 07:41 | WPDANLDNPN2 ---
Anes-Prog Note L&D-Neuraxial Date/Time: 06/29/20 07:41 Neuraxial medications: intrathecal PF morphine Opiod-related complaints: none Patient feedback: Patient satisfied with post-operative pain management.
--- NOTE | 2020-06-29 07:44 | PM.OBPNVD ---
OB - PN: Subj Subjective Date/time seen: 06/29/20 07:44 Patient comments: no complaints baby status: doing well [place] feeding status: exclusively bottle feeding OB - PN: Obj Data Labs CBC & Chem 7: 06/29/20 05:08 Labs: Laboratory Results - last 24 hr 06/29/20 05:08 WBC 10.9 H RBC 2.84 L Hgb 7.1 L Hct 23.0 L MCV 81.0 MCH 25.0 L MCHC 30.9 L RDW 15.8 H Plt Count 135 L MPV 11.4 H Immature Gran % (Auto) 0.7 H Neut % (Auto) 82.0 H Lymph % (Auto) 9.4 L [place] % (Auto) 6.4 Eos % (Auto) 1.0 Baso % (Auto) 0.5 Lymph # (Auto) 1.03 [place] # (Auto) 0.7 H Eos # (Auto) 0.1 Baso # (Auto) 0.1 Abs Immat Gran (auto) 0.08 H Absolute Neuts (auto) 8.9 H Absolute Nucleated RBC 0.0 Nucleated RBC % 0.0 OB - PN A/P Plan day: 1 Plan: routine care Time Spent With Patient Time: Total time spent is greater than 50% in coordination of care (as documented) at patient's floor/unit and/or counseling patient: Review of Systems Review of Systems: All systems reviewed & are unremarkable except as noted in HPI and below Exam Const: General: cooperative Resp: Effort & Inspection: normal respiratory effort GI: Inspection: other (Incision CDI) Psych: Attitude: cooperative Thought process: Normal thought process present Thought content: Yes Normal thought content present Judgement: Good judgement present (Psych)
[2020-06-29] MEDS: MULTIVIT/MIN/PREN/FOL AC/IRON TABLET 1 TAB PO (08:24)
[2020-06-29] MEDS: DOCUSATE SODIUM 100 MG CAPSULE PO ×2 (08:24→17:50)
[2020-06-29] MEDS: POLYSACCHARIDE IRON COMPLEX 150 MG CAPSULE PO ×2 (08:24→17:49)
[2020-06-29 08:25] VITALS: BP 117/62; PULSE 88; RESP 16; TEMP 36.6; O2SAT 100
--- NOTE | 2020-06-29 09:02 | PM.PROC ---
Procedure Note - Detailed Date of procedure: 06/29/20 Pre-op diagnosis: section Post-op diagnosis: same Procedure performed: Suction D&C Description of procedure: The patient was taken the operating room. She has prepped and draped in dorsal lithotomy position after induction of mac anesthesia. A speculum was placed in the vagina. The cervix was grasped with a tenaculum. The cervix was injected at 3 and 9:00 a.m. with 1% lidocaine. The cervix was dilated up to 8 mm using [place] dilators. An 8 curved plastic suction curette was then applied to the intrauterine cavity. All of the surfaces in the intrauterine cavity were curettage under VAC. A sharp medium-size curette was then used to curettage all the surfaces to confirmed the removal of all the products conception. When all surfaces were thought to be clean, the curette was removed. The suction curette was then reapplied to remove all the debris. The procedure was terminated. The tenaculum was removed. The speculum was removed. The patient tolerated the procedure well. She was taken recovery room in stable condition. Anesthesia: MAC Surgeon: Severiano Ashton MD Estimated blood loss (mL): 25 Drains: No Packing: No Pathology: yes Complications: No immediate complications Condition: stable Disposition: PACU Findings: Normal vulva vagina and cervix. The moderate amounts of products conception. 13 cm uterus.
--- NOTE | 2020-06-29 14:42 | PC.NURSE ---
Patient viewed the discharge video Mother & Baby Care, The First Two Weeks . Patient was given the opportunity and encouraged to ask questions. Patient verbalized understanding of information shared and has been given the mother/baby guide for home reference.
[2020-06-29 19:35] VITALS: BP 117/68; PULSE 87; RESP 16; TEMP 36.5; O2SAT 99
[2020-06-30] MEDS: HYDROcodone/acetaminophen (*CRX) 10-325 MG TABLET 1 TAB PO ×3 (01:30→13:06)
[2020-06-30] MEDS: IBUPROFEN 600 MG TABLET PO ×2 (01:30→08:40)
[2020-06-30 08:00] VITALS: BP 126/70; PULSE 18; PULSE 74; RESP 20; RESP 74; TEMP 36.6; O2SAT 99
[2020-06-30] MEDS: SIMETHICONE 80 MG TAB.CHEW PO (08:40)
[2020-06-30] MEDS: MULTIVIT/MIN/PREN/FOL AC/IRON TABLET 1 TAB PO (08:41)
[2020-06-30] MEDS: POLYSACCHARIDE IRON COMPLEX 150 MG CAPSULE PO (08:41)
[2020-06-30] MEDS: DOCUSATE SODIUM 100 MG CAPSULE PO (08:41)
--- NOTE | 2020-06-30 10:20 | PM.OBPNVD ---
OB - PN: Subj Subjective Date/time seen: 06/30/20 10:20 Patient comments: no complaints, pain well controlled, incisional pain, tolerating diet and flatus present OB - PN: Obj Data Labs CBC & Chem 7: 06/29/20 05:08 OB - PN A/P Plan day: 2 Plan: routine care Comments: POD#2 LTCS - no problems, d/c Time Spent With Patient Time: Total time spent is greater than 50% in coordination of care (as documented) at patient's floor/unit and/or counseling patient: Exam Const: General: comfortable, no acute distress and alert Resp: Effort & Inspection: normal respiratory effort Auscultation: no crackles, no rales and no rhonchi Cardio: Rate: regular rate Heart sounds: no click, no murmurs and no rubs GI: Inspection: non-distended GI Palp: No Tenderness to palpation present (GI) Auscultation: normal bowel sounds Other: Incision - CDI Extrem: General: normal to inspection, no pedal edema and no calf tenderness
--- NOTE | 2020-06-30 10:20 | PM.OBDSVD ---
DS: Admitting Diagnosis Admitting Diagnosis Admitting Diagnosis: Term OB - DS: Summary OB Procedures : None OB Procedures Intrapartum: OB Procedures: : None Peripartum Data Infant Delivery Method: Section Procedures: Procedures Operation Date: 06/28/20 07:30 Actual Procedures Side Surgeon p Repeat Section With Bilateral Tubal Ligation With Fulguration Severiano Ashton MD Time Spent with Patient Time attestation: Total time spent providing and/or coordinating discharge services: DS: Data Data Completed and Pending Completed studies during hospitalization: Pending at discharge 06/28/20 08:55 Surgical [PTH] Routine Discharge Plan Discharge Consulting providers: Henny Salmon Discharging Clinician: Severiano Ashton Patient Disposition: Home, Self-Care Activity: pelvic rest Diet: regular Discharge Instructions: Education: Mom and Baby Guide Given to: Mother Follow-Up: Call your delivering provider's office for an appointment to be seen in: 4 Weeks Mom and baby [facility] come to [facility] for the follow-up appointment. Appointment Date/Time: July 02, 2020 at 10:00 am What to expect at your follow-up visit: Blood Pressure Check Physical Assessment Call [phone] if you are unable to keep your appointment time. BREAST CARE: * Wear a snug supportive bra. * For engorgement discomfort: Breast Feeding: * Apply warm moist washcloths * Express milk as needed to relieve engorgement * Wear loose clothing Bottle Feeding: * May apply ice packs * For sore nipples: * Identify correct latch-on * Apply warm moist washcloths before and after nursing * Air dry nipples after nursing * May apply Lansinoh cream to nipples ABDOMINAL INCISION: (if applicable) * Allow incision to air dry * Do NOT use lotions for powders on your incision * When showering, allow soap and water to run over the incision, but do not wash incision EPISIOTOMY/PERINEAL CARE: * Until bleeding stops, use your michelle bottle after urinating * Change your pad frequently throughout the day * You may take sitz baths several times a day (fill your bathtub with warm water and soak for 20 minutes.) Do NOT bathe in the water * No tub baths until seen by your physician - You may shower ACTIVITY: * Rest as much as possible. * Do not exercise or lift anything heavier than your baby (such as laundry or other children.) * Avoid stairs or driving as much as possible. * Do not put anything into the vagina. No douching, tampons, or sexual activity until seen by physician. NOTIFY PHYSICIAN IF YOU HAVE ANY QUESTIONS OR IF ANY OF THE FOLLOWING SYMPTOMS OCCUR: * If your episiotomy or incision becomes red, swollen, or more painful than what you have experienced in the hospital. * If your vaginal bleeding becomes foul smelling. * If your vaginal bleeding becomes more heavy than a period or if your bleeding changes from pink to bright red. However, you may pass an occasional walnut-sized clot once or twice for the first week . * If you experience a sharp, shooting pain in you calves. * If you discover a hard, reddened area on your breast or if you experience flu-like symptoms. DIET: * Eat regular, well-balanced meals. * Drink plenty of fluids daily. If , drink to thirst. Patient Instructions: Antibiotic Form Stand Alone Forms: General Discharge Information Follow-up/Referrals: Severiano Ashton MD [Physician] - Discharge Medications: New hydrocodone-acetaminophen 5-325 mg tablet 1 - 2 tablet PO Q4H PRN (Reason: pain) Qty: 25 RF: 0 Continued Vitamin 27 mg iron- 800 mcg tablet 1 tablet PO DAILY RF: 0 Slow Fe 142 mg (45 mg iron) Tablet Extended Release 142 mg PO DAILY RF: 0 nifedipine [Procardia XL] 30 mg Ta
--- NOTE | 2020-06-30 12:22 | PC.NURSE ---
Education: Mom and Baby Guide Given to: Mother Follow-Up: Call your delivering provider's office for an appointment to be seen in: 4 Weeks Mom and baby should come to the [facility] for the follow-up appointment. Appointment Date/Time: Thursday, July 02, 2020 at 10:00 am What to expect at your follow-up visit: Blood Pressure Check Physical Assessment Call [phone] if you are unable to keep your appointment time. BREAST CARE: * Wear a snug supportive bra. Bottle Feeding: * May apply ice packs ABDOMINAL INCISION: (if applicable) * Allow incision to air dry * Do NOT use lotions for powders on your incision * When showering, allow soap and water to run over the incision, but do not wash incision EPISIOTOMY/PERINEAL CARE: * Until bleeding stops, use your michelle bottle after urinating * Change your pad frequently throughout the day * You may take sitz baths several times a day (fill your bathtub with warm water and soak for 20 minutes.) Do NOT bathe in the water * No tub baths until seen by your physician - You may shower ACTIVITY: * Rest as much as possible. * Do not exercise or lift anything heavier than your baby (such as laundry or other children.) * Avoid stairs or driving as much as possible. * Do not put anything into the vagina. No douching, tampons, or sexual activity until seen by physician. NOTIFY PHYSICIAN IF YOU HAVE ANY QUESTIONS OR IF ANY OF THE FOLLOWING SYMPTOMS OCCUR: * If your incision becomes red, swollen, or more painful than what you have experienced in the hospital. * If your vaginal bleeding becomes foul smelling. * If your vaginal bleeding becomes more heavy than a period or if your bleeding changes from pink to bright red. However, you may pass an occasional walnut-sized clot once or twice for the first week . * If you experience a sharp, shooting pain in you calves. * If you discover a hard, reddened area on your breast or if you experience flu-like symptoms. DIET: * Eat regular, well-balanced meals. * Drink plenty of fluids daily. If , drink to thirst.
--- NOTE | 2020-06-30 12:23 | PC.NURSE ---
Self care and infant care discharge instructions given including follow up visit date and time. Pt. verbalized understanding. No questions or concerns voiced. Very pleasant and cooperative.
[2020-07-02 09:51] VITALS: BP 118/60; PULSE 89; RESP 16; TEMP 37.2; O2SAT 99
== END 2020-06-30 13:10 | disposition home or self-care (01) | DRG 540 ==
LOC: ANHLDR 05:14 → ANHOB2 10:38
PROVIDERS: Admitting Provider Obstetrics & Gynecology; PCP Family Medicine; Visit Provider Obstetrics & Gynecology
PROC: 10D00Z1 Extraction of Products of Conception, Low, Open Approach (ICD-10-PCS; CPT 59514; principal; 2020-06-28 07:30)
DX: O34.211 Maternal care for low transverse scar from previous cesarean delivery (principal); Z3A.39 39 weeks gestation of pregnancy; Z37.0 Single live birth; O99.214 Obesity complicating childbirth; E66.9 Obesity, unspecified; Z30.2 Encounter for sterilization
CPT/HCPCS: 36415; 85014; 85018; 85025; 85049; 88302; A9270; J0131; J0690; J1200; J2274; J2590; J3010; J7120

== ENCOUNTER 2020-11-04 14:49 | Emergency (ER) | payer OTHER, SELFPAY ==
[2020-11-04 15:15] VITALS: BP 121/66; PULSE 93; RESP 20; TEMP 37.2; O2SAT 100
--- NOTE | 2020-11-04 15:36 | ED.GENADULT ---
HPI - General Adult General Chief complaint: Upper Respiratory Infection Stated complaint: headache/chills/sore throat Source: patient Mode of arrival: ambulatory Limitations: no limitations History of Present Illness HPI narrative: 25 y/o female. PMHx includes: HTN. [facility] with acute complaints of nasal congestion, TERRY, and body aches for past 3 days. She reports child at home ill with similar manifestations. No fever. No cough, chest pain, abdominal pain, N/V. She notes only mild relief with home OTC remedies. She is w/o additional acute c/o illness upon exam. Related Data Home Medications Medication Instructions Recorded Confirmed No Home Medications 11/04/20 11/04/20 Allergies Allergy/AdvReac Type Severity Reaction Status Date / Time No Known Drug Allergies Allergy Unknown Other Verified 06/28/20 06:47 Review of Systems Review of Systems: CONSTITUTIONAL: Denies fever, chills, sweats. Body aches. EYES: Denies visual changes, redness, discharge. ENT: Positive rhinorrhea, congestion. No sore throat, otalgia. CARDIOVASCULAR: Denies chest pain, palpitations, edema. RESPIRATORY: Denies dyspnea, wheezing, cough GASTROINTESTINAL: Denies abdominal pain, nausea, vomiting, diarrhea. GENITOURINARY: Denies dysuria, hematuria, abnormal discharge SKIN: Denies rash or itching. MUSCULOSKELETAL: Denies acute back pain, joint pain, or myalgia. NEUROLOGIC: Denies numbness, or focal weakness. PSYCHIATRIC: Denies anxiety or depression. All systems reviewed & are unremarkable except as noted in HPI and below PMFSH Family History Family History Other No pertinent family history Social History Social History Smoking status: Never smoker Substance use: never Gender identity (if verbalized by the patient): Female Spiritual care concerns: No Exam Narrative: GENERAL: This is a well-nourished, well-developed adult, in no apparent distress. HEAD: normocephalic, atraumatic. EYES: PERRL. Sclera clear/white. EARS: External ears normal, auditory canals clear and without drainage, TMs normal. NOSE: External nose normal. Positive Rhinorrhea, no obstruction, nares patent. Positive PND. THROAT: Mucous membranes moist, posterior pharynx erythematous, No exudates. NECK: Neck supple, non-tender without lymphadenopathy, masses or thyromegaly. CARDIOVASCULAR: Regular rate and rhythm without murmurs, gallops, or rubs. RESPIRATORY: Clear to auscultation. Breath sounds equal bilaterally. No wheezes, rales, or rhonchi. GASTROINTESTINAL: Abdomen soft, non-tender, nondistended. Bowel sounds are active. No guarding. SKIN: warm, intact with no suspicious lesions or rash, good texture and turgor. NEURO: Alert, active, and age appropriate. No focal neurologic deficits. EXTREMITIES: Negative. Course Course Emergency Course: -Additional family in home with similar s/s. -Proceed with Viral Influenza & Sars Covid testing. Vital Signs Vital signs: Vital Signs Temperature 37.2 C 11/04/20 15:15 Pulse Rate 93 11/04/20 15:15 Respiratory Rate 20 11/04/20 15:15 Blood Pressure 121/66 11/04/20 15:15 Pulse Oximetry 100 11/04/20 15:15 Temperature 37.2 C 11/04/20 15:15 Pulse Rate 93 11/04/20 15:15 Respiratory Rate 20 11/04/20 15:15 Blood Pressure 121/66 11/04/20 15:15 Pulse Oximetry 100 11/04/20 15:15 Medical Decision Making [facility] Narrative Medical decision making narrative: -Appears non-toxic. -Rapid Influenza negative. Covid PCR is send-out. -Resume home Viral remedies prn for symptomatic relief. -Resume all self isolation and Quarantine as directed, until PCR is rec'd and negative, or longer per CDC & Local Health Dept guidelines with positive findings. -ER with emergent health status changes. Pt agrees. Differential Diagnosis Differential Diagnosis: Differential
[2020-11-05 13:59] LABS: SARS-CoV-2 RNA PCR Negative
== END 2020-11-04 16:14 | disposition home or self-care (01) ==
PROVIDERS: Emergency Provider Nurse Practitioner Adult Health
DX: B34.9 Viral infection, unspecified (principal); Z20.822 Contact with and (suspected) exposure to COVID-19
CPT/HCPCS: 87804; 99213; C9803; G0463; U0003; U0005

== ENCOUNTER 2020-12-16 10:26 | Emergency (ER) | payer OTHER, SELFPAY ==
[2020-12-16 10:33] VITALS: BP 132/66; PULSE 87; RESP 16; TEMP 36.7; O2SAT 98
--- NOTE | 2020-12-16 10:41 | ED.URI ---
HPI - URI/Sore Throat General Chief Complaint: Upper Respiratory Infection Stated Complaint: sore throat/runny nose/cough/espino Time Seen by Provider: 12/16/20 10:41 Source: patient and RN notes reviewed Mode of arrival: ambulatory Limitations: no limitations History of Present Illness HPI Narrative: 25-year-old female presents to the [facility] with complaints I'm Just sick. states she has the chills, a sore throat, runny nose, cough and headache for a couple of days. Reports that she has tried OTC medication 1 time and it did not help. Denies fevers. No chest pain or shortness of breath. No abdominal pain, nausea, vomiting or diarrhea. Related Data Home Medications Medication Instructions Recorded Confirmed No Home Medications 11/04/20 11/04/20 Allergies Allergy/AdvReac Type Severity Reaction Status Date / Time No Known Drug Allergies Allergy Unknown Other Verified 06/28/20 06:47 Review of Systems Review of Systems: All systems reviewed & are unremarkable except as noted in HPI and below Constitutional: Constitutional: Reports no additional constitutional complaints and Denies chills Eyes: Eyes: Reports no additional eye complaints and Denies change in vision ENT: Reports as per HPI and Reports sore throat Cardiovascular: Cardiovascular: Reports no additional cardiovascular complaints and Denies chest pain Respiratory: Respiratory: Reports as per HPI, Reports cough, Denies dyspnea and Denies wheezing Gastrointestinal: Gastrointestinal: Reports no additional gastrointestinal complaints, Denies abdominal pain, Denies diarrhea, Denies nausea and Denies vomiting Musculoskeletal: Musculoskeletal: Reports no additional musculoskeletal complaints Integumentary/Breasts: Skin/Breast: Reports system reviewed and no additional complaints, except as docu Neurologic: Reports as per HPI and Reports headache(s) Psychiatric: Psychiatric: Reports no additional psychiatric complaints Allergic/Immunologic: Allergic/Immunologic: Reports no additional allergic/immunologic complaints PMFSH Past Medical History Medical History (Updated 12/16/20 @ 13:17 by Saray Berger) No significant medical problems Surgical History Surgical History H/O: Family History Family History Other No pertinent family history Social History Social History (Updated 12/16/20 @ 13:17 by Saray A. Topper) Smoking status: Never smoker Substance use: never Living arrangements: alone Gender identity (if verbalized by the patient): Female Spiritual care concerns: No Comments At the time of my signature, I reviewed and agree with the nursing past medical, surgical, social, and family history. There is no relevant family history pertinent to the patient complaint. Exam Const: General: no acute distress, alert and ill appearing acutely Nutritional Appearance: well nourished Orientation/consciousness: patient oriented x3 Limitations: no limitations HENMT: Head: normal to inspection and atraumatic Ears: external ears normal, TM's normal bilaterally and EAC's normal General nose exam: Normal external nose present, Abnormal mucous membranes and turbinates present boggy bilateral; not erythematous and Nasal discharge present clear and mucoid Face and sinus: normal facial exam and face symmetric Mouth: Yes Normal oral and palatal mucosa present Throat: uvula midline and postnasal drainage (Copious amounts) Eyes: Conjunctivae: conjunctivae normal Pupils: Equal, round and reactive pupils present Neck: Neck: normal visual inspection, no lymphadenopathy and no meningeal signs Chest: Chest palpation & inspection: normal inspection of the chest Resp: Effort & Inspection: normal respiratory effort and no use of accessory muscles Auscultation: clear to auscultation bilaterally, no crackles, no rales, no rhonchi and no wheezes
--- NOTE | 2020-12-16 10:42 | ED.URI ---
HPI - URI/Sore Throat General Chief Complaint: Upper Respiratory Infection Stated Complaint: sore throat/runny nose/cough/espino Time Seen by Provider: 12/16/20 10:41 Source: patient and RN notes reviewed Mode of arrival: ambulatory Limitations: no limitations History of Present Illness MD elicited complaint: sore throat Related Data Home Medications Medication Instructions Recorded Confirmed No Home Medications 11/04/20 11/04/20 Allergies Allergy/AdvReac Type Severity Reaction Status Date / Time No Known Drug Allergies Allergy Unknown Other Verified 06/28/20 06:47 Review of Systems Review of Systems: CONSTITUTIONAL: Denies malaise, chills, sweats, or fever. EYES: Denies visual changes, redness, or discharge. ENT: Reports rhinorrhea, congestion, sinus pain, otalgia and sore throat. CARDIOVASCULAR: Denies chest pain, palpitations, or edema. RESPIRATORY: Reports cough. Denies dyspnea. GASTROINTESTINAL: Denies abdominal pain, nausea, vomiting, diarrhea SKIN: Denies rash or itching. MUSCULOSKELETAL: Denies myalgia. NEUROLOGIC: Denies headache. All systems reviewed & are unremarkable except as noted in HPI and below PMFSH Surgical History Surgical History (Updated 12/16/20 @ 10:42 by Saray Berger) H/O: Family History Family History Other No pertinent family history Social History Social History Smoking status: Never smoker Substance use: never Gender identity (if verbalized by the patient): Female Spiritual care concerns: No Comments At time of signature, agree with nursing past medical, surgical, social and family history. There is no relevant family history pertinent to the presenting complaint Exam Narrative: GENERAL: Well-appearing, well-nourished, and in no acute distress. HEAD: Normocephalic EYES: PERRLA, conjunctivae clear ENT: Nares clear, turbinates edematous and erythematous, clear discharge. Mucous membranes moist. TM pearly cruz with dull light reflex bilaterally; no tragal tenderness. Oropharynx erythematous without lesions. Tonsils enlarged and without exudate, no drooling, no hoarseness, no trismus, uvula midline. NECK: Supple. No lymphadenopathy CHEST: Clear to auscultation, breath sounds equal. No wheezing, rhonchi, rales, or stridor. No respiratory distress, speaks in full sentences. HEART: Regular rate and rhythm. No murmur heard. SKIN: Warm, dry, no rash. NEURO: Alert and oriented x3. PSYCH: Normal mood and affect Course Course Emergency Course: Patient is aware of diagnosis, understands and agrees to treatment plan. Anticipatory guidance given. Patient agrees to follow-up as directed and is aware of reasons to seek care at the emergency department. Portions of this record may have been created with voice recognition software Vital Signs Vital signs: Vital Signs Temperature 98.1 F 12/16/20 10:33 Pulse Rate 87 12/16/20 10:33 Respiratory Rate 16 12/16/20 10:33 Blood Pressure 132/66 12/16/20 10:33 Pulse Oximetry 98 12/16/20 10:33 Temperature 98.1 F 12/16/20 10:33 Pulse Rate 87 12/16/20 10:33 Respiratory Rate 16 12/16/20 10:33 Blood Pressure 132/66 12/16/20 10:33 Pulse Oximetry 98 12/16/20 10:33 Reviewed. MDM - URI/Sore Throat MDM Narrative Medical decision making narrative: Differential diagnosis considered: Montes virus, strep pharyngitis, allergic rhinitis, upper respiratory tract infection, sinusitis, rhinosinusitis, nasopharyngitis. viral pharyngitis, otitis media, otitis externa, pneumonia, bronchitis, viral cough syndrome, viral syndrome, and influenza. Exam findings show no acute concerns or changes; patient is non-toxic appearing and is in no distress. Patient is appropriate for outpatient treatment and follow-up. Critical Care Time Critical Care Time Critical Care Time: No Discharge Plan Discharge Pr
[2020-12-17 18:39] LABS: SARS-CoV-2 RNA PCR Negative
== END 2020-12-16 11:11 | disposition home or self-care (01) ==
PROVIDERS: Emergency Provider Nurse Practitioner; PCP Family Medicine
DX: J06.9 Acute upper respiratory infection, unspecified (principal); Z20.822 Contact with and (suspected) exposure to COVID-19
CPT/HCPCS: 87081; 87804; 87880; 99213; C9803; G0463; U0003; U0005

== ENCOUNTER 2021-06-06 12:50 | Emergency (ER) | payer OTHER, SELFPAY ==
[2021-06-06 12:58] VITALS: BP 130/72; PULSE 85; RESP 16; TEMP 36.9; O2SAT 99
[2021-06-06 13:05] VITALS: BP 130/72; PULSE 85; RESP 16; TEMP 36.9; O2SAT 99
--- NOTE | 2021-06-06 13:27 | ED.URI ---
HPI - URI/Sore Throat General Chief Complaint: Upper Respiratory Infection Stated Complaint: cough Time Seen by Provider: 06/06/21 13:22 Source: patient, RN notes reviewed and old records reviewed Mode of arrival: ambulatory Limitations: no limitations History of Present Illness HPI Narrative: 25 year old female who presents to [facility] care with complaints of dry cough, sore throat, fatigue and left ear pain for the past 2 days. Patient states that she took a Covid test last pm which was negative, Patient has not had any fevers, chills or sweats or any body aches reports that she has not had COVID or flu vaccinations. She states that she has been taking Theraflu for her symptoms MD elicited complaint: cough and sore throat Severity: moderate Pain scale (0-10): 5 Treatments prior to arrival: other (Theraflu) Related Data Allergies Allergy/AdvReac Type Severity Reaction Status Date / Time No Known Drug Allergies Allergy Unknown Other Verified 06/28/20 06:47 Review of Systems Review of Systems: CONSTITUTIONAL: Denies fever, chills, or sweats. EYES: Denies visual changes, redness, or discharge. ENT: Positive rhinorrhea, congestion, sore throat, left otalgia. CARDIOVASCULAR: Denies chest pain, palpitations, or edema. RESPIRATORY: Positive for dry cough denies dyspnea. GASTROINTESTINAL: Denies abdominal pain, nausea, vomiting, or diarrhea. GENITOURINARY: Denies dysuria or hematuria. SKIN: Denies rash or itching. MUSCULOSKELETAL: Denies back pain, joint pain, or myalgia. NEUROLOGIC: Denies headache, numbness, or weakness. PSYCHIATRIC: Denies anxiety or depression. All systems reviewed & are unremarkable except as noted in HPI and below PMFSH Past Medical History Medical History (Updated 06/06/21 @ 13:40 by Jeanette Alvarez NP) No significant medical problems Surgical History Surgical History (Updated 06/06/21 @ 22:48 by Jeanette Alvarez NP) H/O tubal ligation H/O: Family History Family History Other No pertinent family history Social History Social History Smoking status: Never smoker Substance use: never Gender identity (if verbalized by the patient): Female Spiritual care concerns: No Comments At time of signature, agree with nursing past medical, surgical, social and family history. There is no relevant family history pertinent to the presenting complaint Exam Narrative: GENERAL: Ill-appearing, well-nourished, and in no acute distress. HEAD: Normocephalic, atraumatic. EYES: PERRLA and EOMI. ENT: Nares patent with clear rhinorrhea no epistaxis. Mucous membranes moist.TM's normal with dull light reflexm throat red with no exudates or lesions, tonsils red and swollen with painful swallowing NECK: Supple.positive for lymphadenopathy CHEST: Clear to auscultation. No respiratory distress.dry cough noted, with SAO2 99 % on room air HEART: Regular rate and rhythm. No murmur heard. Normal peripheral pulses. ABDOMEN: Soft, nontender, nondistended, normal active bowel sounds. EXTREMITIES: Normal range of motion. No edema. SKIN: Warm, dry, no rash. NEURO: No focal deficits. Alert and oriented x3. Course Course Level of Care: Express Care Visit Vital Signs Vital signs: Vital Signs Temperature 36.9 C 06/06/21 12:58 Pulse Rate 85 06/06/21 12:58 Respiratory Rate 16 06/06/21 12:58 Blood Pressure 130/72 06/06/21 12:58 Pulse Oximetry 99 06/06/21 12:58 Temperature 36.9 C 06/06/21 13:05 Pulse Rate 85 06/06/21 13:05 Respiratory Rate 16 06/06/21 13:05 Blood Pressure 130/72 06/06/21 13:05 Pulse Oximetry 99 06/06/21 13:05 MDM - URI/Sore Throat Differential Diagnosis Differential diagnosis: Likely upper respiratory infection, sinusitis, viral infection, pharyngitis and other (tonsillitis, acute cough) Medical Records Attestation: I reviewed the patient's me
== END 2021-06-06 13:50 | disposition home or self-care (01) ==
PROVIDERS: Emergency Provider Registered Nurse; PCP Family Medicine
DX: J03.90 Acute tonsillitis, unspecified (principal); R05.9 Cough, unspecified
CPT/HCPCS: 87081; 87147; 87880; 99213; G0463

== ENCOUNTER 2022-01-24 08:05 | Emergency (ER) | payer OTHER, SELFPAY ==
[2022-01-24 08:13] VITALS: BP 109/81; PULSE 86; RESP 18; TEMP 37.2; O2SAT 100
--- NOTE | 2022-01-24 08:13 | ED.URI ---
HPI - URI/Sore Throat General Chief Complaint: Upper Respiratory Infection Stated Complaint: Headache,Sore Throat, Chills Time Seen by Provider: 01/24/22 08:13 Source: patient, RN notes reviewed and old records reviewed Mode of arrival: ambulatory Limitations: no limitations History of Present Illness HPI Narrative: 26-year-old female presents to the [facility] with complaints of headache, sinus drainage, ear pressure since last night. No treatment prior to arrival. Unknown if she has had a fever but states she has had the chills. Reports that she called in sick to work and needs a work note. MD elicited complaint: sore throat and rhinorrhea Related Data Allergies Allergy/AdvReac Type Severity Reaction Status Date / Time No Known Drug Allergies Allergy Unknown Other Verified 01/24/22 08:16 Review of Systems Review of Systems: All systems reviewed & are unremarkable except as noted in HPI and below Constitutional: Constitutional: Reports as per HPI, Denies chills, Reports fatigue, Denies fever(s) and Reports headache(s) Eyes: Eyes: Reports no additional eye complaints ENT: Reports as per HPI Cardiovascular: Cardiovascular: Reports no additional cardiovascular complaints Respiratory: Respiratory: Reports no additional respiratory complaints Gastrointestinal: Gastrointestinal: Reports no additional gastrointestinal complaints Musculoskeletal: Musculoskeletal: Reports no additional musculoskeletal complaints Integumentary/Breasts: Skin/Breast: Reports system reviewed and no additional complaints, except as docu Neurologic: Reports system reviewed and no additional complaints, except as documented Psychiatric: Psychiatric: Reports no additional psychiatric complaints Allergic/Immunologic: Allergic/Immunologic: Reports no additional allergic/immunologic complaints [facility] Past Medical History Medical History No significant medical problems Surgical History Surgical History H/O tubal ligation H/O: Family History Family History Other No pertinent family history Social History Social History Smoking status: Never smoker Substance use: never Gender identity (if verbalized by the patient): Female Spiritual care concerns: No Comments At the time of my signature, I reviewed and agree with the nursing past medical, surgical, social, and family history. There is no relevant family history pertinent to the patient complaint. Exam Const: General: healthy appearing, no acute distress, alert and well nourished Nutritional Appearance: well nourished Orientation/consciousness: patient oriented x3 Limitations: no limitations HENMT: Head: normal to inspection Ears: external ears normal, EAC's normal and TM abnormal bulging on the left and with fluid behind the TM bilateral; not erythematous Face/Nose/Sinus: Normal external nose present and Nasal discharge present clear bilateral Face and sinus: normal facial exam, sinuses nontender and face symmetric Mouth: Yes Normal oral and palatal mucosa present, Yes lip normal, Yes tongue normal and Yes moist mucous membranes Throat: posterior oropharynx normal, tonsils normal, uvula midline and postnasal drainage Eyes: General: appearance normal, both eyes and all related structures Conjunctivae: conjunctivae normal Pupils: Equal, round and reactive pupils present Neck: Neck: normal visual inspection, no lymphadenopathy and no meningeal signs Chest: Chest palpation & inspection: normal inspection of the chest Resp: Effort & Inspection: normal respiratory effort and no use of accessory muscles Auscultation: clear to auscultation bilaterally, no crackles, no rales, no rhonchi and no wheezes Cardio: Rate: regular rate Rhythm: regular rhythm Sk
[2022-01-24 20:42] LABS: SARS-CoV-2 RNA PCR Negative
== END 2022-01-24 08:36 | disposition home or self-care (01) ==
PROVIDERS: Emergency Provider Nurse Practitioner; PCP Family Medicine
DX: J06.9 Acute upper respiratory infection, unspecified (principal); Z20.822 Contact with and (suspected) exposure to COVID-19
CPT/HCPCS: 99213; C9803; G0463; U0003; U0005

== ENCOUNTER 2023-04-20 09:47 | Emergency (ER) | payer OTHER, SELFPAY ==
--- NOTE | ~2023-04-20 | XR_ITS ---
EXAMINATION: XR chest 2V DATE: 04/20/2023 10:17 INDICATION: 2 days of cough and shortness of breath. TECHNIQUE: PA and lateral views of the chest were obtained. COMPARISON: None FINDINGS: The lungs are clear with no focal airspace opacities, pulmonary edema, pleural effusion or pneumothor ax. The cardiomediastinal silhouette is normal. Visualized bones and soft tissues are unremarkable. IMPRESSION: 1. Normal chest radiograph. Reviewed, dictated and finalized at location A. [facility] IMPRESSION: 1. Normal chest radiograph.
[2023-04-20 10:02] VITALS: BP 127/76; PULSE 78; RESP 16; TEMP 37; O2SAT 100
--- NOTE | 2023-04-20 10:04 | ED.URI ---
HPI - URI/Sore Throat General Chief Complaint: Upper Respiratory Infection Stated Complaint: Ears Irritation/Cough Time Seen by Provider: 04/20/23 10:05 Source: patient Mode of arrival: ambulatory Limitations: no limitations History of Present Illness HPI Narrative: Marianna is a 27-year-old female patient presenting to the clinic today with complaints of bilateral ear pain, cough, congestion, sore throat, fever, chills, body aches, headache, and shortness of breath. Reports that she did at home COVID test yesterday and it was negative. Symptoms have been going on for 2 days. Reports highest fever was MD elicited complaint: sore throat and nasal congestion Related Data Allergies Allergy/AdvReac Type Severity Reaction Status Date / Time No Known Drug Allergies Allergy Unknown Other Verified 01/24/22 08:16 Review of Systems Review of Systems: Pertinent positives per HPI. Patient denies any fever, chills, rash, headache, visual changes, dizziness, cough, shortness of breath, chest pain, palpitations, nausea, vomiting, diarrhea, constipation, abdominal pain, or any urinary issues. PMFSH Past Medical History Medical History No significant medical problems Surgical History Surgical History H/O tubal ligation H/O: Family History Family History Other No pertinent family history Social History Social History Smoking status: Never smoker Substance use: never Living arrangements: alone Gender identity (if verbalized by the patient): Female Spiritual care concerns: No Comments At the time of my signature, I reviewed and agree with the nursing past medical, surgical, social, and family history. There is no relevant family history pertinent to the patient complaint. Exam Narrative: General: Well-developed, well nourished, in no apparent distress Head: Normocephalic, atraumatic Eyes: Pupils equally round and reactive to light bilaterally, EOM intact, sclera and conjunctive clear, no discharge, lids normal Ears: TMs intact and congested, ear canals clear, no drainage, grossly hearing normal. Nose: Nares patent, clear nasal discharge, no inflammation, no sinus tenderness. Mouth: Oral pharynx red with bilateral tonsillar enlargement without lesions or masses, good dentition, MMM. Neck: Supple, trachea midline, no enlargement of anterior or posterior cervical nodes, no thyroid masses or goiter palpable. Cardio: Regular rate and rhythm, s1 and s2 normal, no murmur appreciated. Resp: Clear to auscultation bilaterally, no rhonchi, rales, wheezing or rubs Course Course Emergency Course: Portions of this record may have been created with voice recognition software. Level of Care: Express Care Visit Vital Signs Vital signs: Vital Signs Temperature 37.0 C 04/20/23 10:02 Pulse Rate 78 04/20/23 10:02 Respiratory Rate 16 04/20/23 10:02 Blood Pressure 127/76 04/20/23 10:02 Pulse Oximetry 100 04/20/23 10:02 Oxygen Delivery Room Air 04/20/23 10:02 Temperature 37.0 C 04/20/23 10:02 Pulse Rate 78 04/20/23 10:02 Respiratory Rate 16 04/20/23 10:02 Blood Pressure 127/76 04/20/23 10:02 Pulse Oximetry 100 04/20/23 10:02 Oxygen Delivery Room Air 04/20/23 10:02 Vital signs reviewed MDM - URI/Sore Throat MDM Narrative Medical decision making narrative: At the time of visit patient is resting comfortably on the exam table. Patient appears to be nontoxic. Influenza and strep test were performed and were negative. Chest x-ray was performed supportive measures were discussed with the patient and they voiced understanding discharge instructions and agrees to treatment plan. Return precautions reviewed Differential Diagnosis Differential diagnosi
== END 2023-04-20 10:39 | disposition home or self-care (01) ==
PROVIDERS: Emergency Provider Nurse Practitioner Family; PCP Family Medicine
DX: J06.9 Acute upper respiratory infection, unspecified (principal); J02.9 Acute pharyngitis, unspecified; B34.9 Viral infection, unspecified
CPT/HCPCS: 71046; 87081; 87804; 87880; 99213; G0463

== ENCOUNTER 2023-07-30 19:23 | Emergency (ER) | payer OTHER, SELFPAY ==
--- NOTE | ~2023-07-30 | XR_ITS ---
EXAMINATION: XR chest 2V DATE: 07/30/2023 19:55 INDICATION: Chest pain. TECHNIQUE: Frontal and lateral views of the chest were obtained. COMPARISON: Chest 2 views 04/20/2023 FINDINGS: There is no pneumonia, pleural effusion, or pneumothorax. The heart size is normal. IMPRESSION: 1. No acute cardiopulmonary disease. Reviewed, dictated and finalized at location E.
[2023-07-30 19:28] VITALS: BP 147/80; PULSE 84; RESP 18; TEMP 37.2; O2SAT 99
--- NOTE | 2023-07-30 19:32 | ECG_ITS ---
SEE SCANNED COPY FOR CONFIRMED REPORT MTDD
[2023-07-30 21:53] VITALS: BP 132/74; PULSE 66; RESP 13; TEMP 36.6; O2SAT 100
[2023-07-30 21:54] VITALS: PULSE 65
[2023-07-30 21:55] VITALS: O2SAT 100
[2023-07-30 21:58] VITALS: O2SAT 100
[2023-07-30] MEDS: ASPIRIN 81 MG CHEWABLE TABLET 324 MG PO (22:01)
[2023-07-30 22:12] LABS: Basophils Absolute Auto 0.1 K/mm3 (0.0-0.1); Basophils Percent Auto 0.8 % (0.2-1.2); Eosinophils Absolute Auto 0.1 K/mm3 (0-0.3); Eosinophils Percent Auto 0.5 % (0-4.4); Hematocrit 35.7 % (37.0-47.0); Hemoglobin 11.1 g/dL (12.0-15.0); Immature Granulocyte Absolute 0.02 K/mm3 (0.00-0.031); Immature Granulocyte Percent A 0.2 % (0-0.5); Lymphocytes Absolute Auto 1.87 K/mm3 (0.9-3.2); Lymphocytes Percent Auto 17.7 % (18.3-44.2); Mean Corpuscular HGB Conc 31.1 g/dl (32-36); Mean Corpuscular Hemoglobin 24.2 pg (26-34); Mean Corpuscular Volume 77.9 fl (80-100); Mean Platelet Volume 10.1 fl (7.4-10.4); Monocytes Absolute Auto 0.8 K/mm3 (0.1-0.6); Monocytes Percent Auto 7.8 % (2.6-8.5); Neutrophils Absolute Auto 7.7 K/mm3 (1.3-6.7); Platelet Count Result 285 k/mm3 (150-375); Red Blood Count 4.58 M/mm3 (4.2-5.4); White Blood Count 10.6 K/mm3 (4.5-10.0)
[2023-07-30 22:23] LABS: Prothrombin Time 13.4 Seconds (11.1-14.7)
[2023-07-30 22:24] LABS: Partial Thromboplastin Time 27.8 Seconds (22.3-36.8)
[2023-07-30 22:25] LABS: Alanine Aminotransferase 16 U/L (6-35); Albumin Level 4.6 g/dL (3.5-5.1); Alkaline Phosphatase 72 U/L (38-126); Anion Gap 7 mmol/L (4-12); Aspartate Amino Transferase 23 U/L (14-36); Bilirubin,Total 0.4 mg/dL (0.2-1.3); Blood Urea Nitrogen 18 mg/dL (7-17); Calcium 9.5 mg/dL (8.4-10.2); Carbon Dioxide 26 mmol/L (22-30); Chloride 106 mmol/L (98-107); Estimated CRCL calculation 144 ml/min; Estimated Glomerular Filt Rate > 60; Glucose 101 mg/dL (65-110); Lipase 62 U/L (23-300); Potassium 3.7 mmol/L (3.4-5.0); Sodium 139 mmol/L (137-145)
--- NOTE | 2023-07-30 22:28 | ED.CHESTPAIN ---
HPI - Chest Pain General Chief Complaint: Chest Pain Stated Complaint: chest pain, leg weakness, headache, sob Time Seen by Provider: 07/30/23 22:00 History of Present Illness HPI narrative: 27-year-old female with a history of anxiety and tubal ligation presents to emergency department chief complaint of a panic attack. Patient states around 5:30 p.m. she was leaving work when she had a sudden in onset chest discomfort, back pain, abdominal pain, pain radiating down both of her legs, bilateral hand paresthesias and had a sensation that her throat was tightening. States she was prescribed duloxetine by her PCP approximately 2 months goes. States she took it for 1 month and discontinued it because it was not working. States she is planning to call her PCP to schedule an appointment for follow-up. She denies cough or congestion, fever, hemoptysis, hx of VTE,, lower extremity pain or edema, loss of consciousness. She is also reporting a frontal headache now. Denies SI or HI. Related Data Allergies Allergy/AdvReac Type Severity Reaction Status Date / Time No Known Drug Allergies Allergy Unknown Other Verified 01/24/22 08:16 Review of Systems Review of Systems: CONSTITUTIONAL: Denies fever, chills, or sweats. EYES: Denies visual changes, redness, or discharge. ENT: Denies rhinorrhea, congestion, sore throat, or otalgia. CARDIOVASCULAR: See HPI RESPIRATORY: See HPI GASTROINTESTINAL: See HPI GENITOURINARY: Denies dysuria or hematuria. SKIN: Denies rash or itching. MUSCULOSKELETAL: See HPI NEUROLOGIC: Denies headache, numbness, or weakness. PSYCHIATRIC: See HPI PMFSH Past Medical History Medical History No significant medical problems Surgical History Surgical History H/O tubal ligation H/O: Family History Family History Other No pertinent family history Social History Social History Smoking status: Never smoker Substance use: never Living arrangements: alone Gender identity (if verbalized by the patient): Female Spiritual care concerns: No Exam Narrative: GENERAL: Well-appearing, well-nourished, and in no acute distress. Anxious HEAD: Normocephalic, atraumatic. EYES: PERRLA and EOMI. ENT: Nares clear, no rhinorrhea or epistaxis. Mucous membranes moist. NECK: Supple. CHEST: Clear to auscultation. No respiratory distress. HEART: Regular rate and rhythm. No murmur heard. Normal peripheral pulses. ABDOMEN: Soft, nontender, nondistended, normal active bowel sounds. EXTREMITIES: Normal range of motion. No edema. Negative Homans bilaterally SKIN: Warm, dry, no rash. NEURO: No focal deficits. Alert and oriented x3 Course Vital Signs Vital signs: Vital Signs Temperature 98.9 F 07/30/23 19:28 Pulse Rate 84 07/30/23 19:28 Respiratory Rate 18 07/30/23 19:28 Blood Pressure 147/80 H 07/30/23 19:28 Pulse Oximetry 99 07/30/23 19:28 Oxygen Delivery Room Air 07/30/23 19:28 Temperature 97.8 F 07/30/23 21:53 Pulse Rate 69 07/30/23 23:48 Respiratory Rate 12 07/30/23 23:48 Blood Pressure 136/74 07/30/23 23:48 Pulse Oximetry 100 07/30/23 23:48 Oxygen Delivery Room Air 07/30/23 21:58 MDM - Chest Pain MDM Narrative Medical decision making narrative: 27-year-old female history tubal ligation and anxiety presents to emergency department for a panic attack that occurred around 5:30 p.m. today. See HPI for further history. Triage vital significant for blood pressure 147/80, otherwise unremarkable. Patient is well-appearing but does look anxious on exam, see above. EKG shows sinus rhythm, no ischemic changes. CBC with mild leukocytosis of 10.6 and hemoglobin 11.1 which is actually improved from baseline. Chemistries are unremarka
[2023-07-30] MEDS: IBUPROFEN 400 MG TABLET 800 MG PO (22:34)
[2023-07-30] MEDS: LORazepam (*CRX) 1 MG TABLET PO (22:34)
[2023-07-30 22:36] LABS: Troponin I < 0.012 ng/mL (0.000-0.034)
[2023-07-30 22:51] LABS: Influenza A QL RT-PCR Negative (Negative); Influenza B QL RT-PCR Negative (Negative); RSV RNA, RT-PCR Negative (Negative); SARS-CoV-2 RNA PCR Negative (Negative)
[2023-07-30 23:48] VITALS: BP 136/74; PULSE 69; RESP 12; O2SAT 100
== END 2023-07-30 23:49 | disposition home or self-care (01) ==
PROVIDERS: Emergency Medicine; Emergency Provider Physician Assistant; PCP Family Medicine
DX: F41.9 Anxiety disorder, unspecified (principal); Z20.822 Contact with and (suspected) exposure to COVID-19
CPT/HCPCS: 36415; 71046; 80053; 83690; 84484; 85025; 85610; 85730; 87637; 93005; 99284; A9270